=== PATIENT | male | born 1960 ===

== ENCOUNTER 2023-08-18 15:18 | Outpatient (CLI) | payer OTHER, SELFPAY ==
--- NOTE | ~2023-08-18 | MR_ITS ---
EXAMINATION: MR ankle RT wo con DATE: 08/18/2023 16:05 INDICATION: Right ankle pain TECHNIQUE: Magnetic resonance imaging (MRI) of the right ankle was performed without intravenous cont rast. Sequences included sagittal, coronal, and axial proton-density weighted fast spin echo without and with fat saturation. COMPARISON: None. FINDINGS: Medial ankle ligaments: The deep deltoid ligament is normal. There is attenuation of the anterior superficial deltoid ligamen t without surrounding edema consistent with chronic partial tear. Spring ligament complexes normal. Lateral ankle ligaments: The anterior and posterior inferior tibiofibular ligaments are normal. The anterior talofibular, calc aneofibular and posterior talofibular ligaments are normal. Tendons: Achilles tendon is normal. The peroneus longus tendon appears to divide into separate larger and smal ler bundles approximately 4 cm above level of the tibiotalar joint line both the bundles are ovoid wi th smooth margins and without evidence of underlying tendinopathy and would favor that this represent s an accessory peroneus quartus tendon likely inserting at the trochlear process of the calcaneus as opposed to a longitudinal split tear. The tibialis anterior and extensor hallucis longus and extensor digitorum longus tendons are normal. The tibialis posterior, flexor digitorum longus and flexor wilson ucis longus tendons are normal. Plantar fascia: There is a moderate-sized plantar calcaneal spur and a few small enthesopathic ossicles at the origin of the central and lateral components of the proximal plantar aponeurosis consistent with chronic en thesopathy. No associated marrow or surrounding soft tissue edema to suggest acute plantar fasciitis. Bones/other: Bone alignment is normal. Small low signal intensity bone island at the medial cuneiform. Normal bone marrow signal throughout with no reactive edema, fracture or pathologic marrow replacing process. 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 Fluid: Physiologic amount fluid in the joint spaces. 18 x 8 x 3 mm ganglion cyst along the dorsal aspect of the talonavicular joint. There is nonspecific soft tissue edema at the volar fat pad. IMPRESSION: 1. Moderate proximal plantar enthesopathy. 2. 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 3. Possible longitudinal split tear of the peroneus longus tendon although appearance favors anatomic variant bifurcation of the proximal tendon with smaller diameter accessory peroneus quartus tendon. Reviewed, dictated and finalized at location B. IMPRESSION: 1. Moderate proximal plantar enthesopathy. 2. 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 3. Possible longitudinal split tear of the peroneus longus tendon although appe arance favors anatomic variant bifurcation of the proximal tendon with smaller diameter accessory peroneus quartus tendon.
== END 2023-08-18 15:19 ==
LOC: MICIMG 15:19
PROVIDERS: PCP Orthopaedic Surgery; Visit Provider Orthopaedic Surgery
DX: S93.491A Sprain of other ligament of right ankle, initial encounter (principal); X58.XXXA Exposure to other specified factors, initial encounter
CPT/HCPCS: 73721